=== PATIENT | male | born 1990 | race Caucasian/White ===

== ENCOUNTER 2017-01-11 21:45 | Emergency (ER) | payer MEDICAID, OTHER ==
[2017-01-11] MEDS ORDERED: Albuterol/Ipratropium 3.0-0.5 MG/3 ML Neb Soln NEB ONE (21:52)
[2017-01-11] MEDS ORDERED: methylPREDNISolone Sodium Succinate 125 MG/2 ML SDV IM ONE (21:52)
--- NOTE | 2017-01-11 21:53 | EDM.PDOC ---
ED HPI GENERAL MEDICAL PROBLEM - General Stated Complaint: SHORTNESS OF BREATH Time Seen by Provider: 01/11/17 21:50 Source of Information: Reports: Patient History Limitations: Reports: No Limitations - History of Present Illness INITIAL COMMENTS - FREE TEXT/NARRATIVE: HISTORY AND PHYSICAL: []26-year-old male presenting with shortness of breath History of Present Illness: []Patient has had a cough and cold chest tightness and coughing for 2 weeks. Shortness of breath started worsening today Patient had a history of asthma when he was 5 years old Review of Systems: As per history of present illness and below otherwise all systems reviewed and negative. Past medical history: As per history of present illness and as reviewed below otherwise noncontributory. Surgical history: As per history of present illness and as reviewed below otherwise noncontributory. Social history: No reported history of drug or alcohol abuse. Family history: As per history of present illness and as reviewed below otherwise noncontributory. Physical exam: Alert and oriented gentleman who is nontoxic. Answering questions in full sentences but is breathy. HEENT: Atraumatic, normocehpalic, pupils reactive, negative for conjunctival pallor or scleral icterus, mucous membranes moist, throat clear, neck supple, nontender, trachea midline. Tympanic membranes are blocked bilaterally with cerumen. Lungs: Wheezing on auscultation, breath sounds equal bilaterally, chest non tender. Decreased inspiratory expiratory effort. Diminished. Heart: S1S2, regular, negative for clicks, rubs, or JVD. Abdomen: Soft, nondistended, nontender. Negative for masses or hepatossplenmegaly. Negative for costovertebral tenderness. Pelvis: Stable nontender. Genitourinary: Deferred. Rectal: Deferred Extremities: Atraumatic, negative for cords or calf pain. Neurovascular unremarkable. Neuro: Awake, alert, oriented. Cranial nerves II through XII unremarkable. Cerebellum unremarkable. Motor and sensory unremarkable throughout. Exam nonfocal. Improvement noted with the DuoNeb Diagnostics: [Chest x-ray] Therapeutics: [DuoNeb] Impression: [Asthma exacerbation] Plan: [Discharged to home Prescription given for prednisone ] Prescription for albuterol inhaler Follow-up with your primary care provider next week Definitive disposition and diagnosis as appropriate pending reevaluation and review of above. Onset: Gradual Duration: Week(s): (2), Getting Worse Location: Reports: Chest - Related Data Allergies Allergy/AdvReac Type Severity Reaction Status Date / Time No Known Allergies Allergy Verified 01/11/17 21:55 Home Meds: Home Meds . [No Known Home Meds] 01/11/17 [History] ED ROS GENERAL - Review of Systems Review Of Systems: ROS reveals no pertinent complaints other than HPI. ED EXAM, GENERAL - Physical Exam Exam: See Below Course - Vital Signs Last Recorded V/S: Last Vital Signs Temp 36.6 C 01/11/17 21:56 Pulse 101 H 01/11/17 21:56 Resp 18 01/11/17 21:56 BP 157/74 H 01/11/17 21:56 Pulse Ox 96 01/11/17 21:56 - Orders/Labs/Meds Orders: Active Orders 24 hr Category Date Time Status RT Aerosol Therapy [RC] ASDIRECTED Care 01/11/17 21:52 Active Splinting [RC] ASDIRECTED Care 01/11/17 22:00 Inactive Chest 2V [CR] Stat Exams 01/11/17 21:52 Ordered Meds: Medications Discontinued Medications Generic Name Dose Route Start Last Admin Trade Name Freq PRN Reason Stop Dose Admin Albuterol/Ipratropium 3 ml 01/11/17 21:52 01/11/17 22:05 Duoneb 3.0-0.5 Mg/3 Ml NEB 01/11/17 21:53 3 ml ONETIME ONE Administration Methylprednisolone Sodium Succinate 125 mg 01/11/17 21:52 01/11/17 22:04 Solu-Medrol IM 01/11/17 21:53 125 mg ONETIME ONE Administration Departure - Departure Time of Disposition: 22:08 Disposition: Home, Self-Care 01 Condition: Good Clinical Impression: Exacerbation of asthma - Discharge Information Instructions: Asthma, Adult, Shortness of Breath, [id number] Referrals: PCP,None [Primary Care Provider] - Additional Instructions: The following information is given to patients seen in the emergency department who are being discharged to home. This information is to outline your options for follow-up care. We provide all patients seen in our emergency department with a follow-up referral. The need for follow-up, as well as the timing and circumstances, are variable depending upon the specifics of your emergency department visit. If you don't have a primary care physician on staff, we will provide you with a referral. We always advise you to contact your personal physician following an emergency department visit to inform them of the circumstance of the visit and for follow-up with them and/or the need for any referrals to a consulting specialist. The emergency department will also refer you to a specialist when appropriate. This referral assures that you have the opportunity for followup care with a specialist. All of these measure are taken in an effort to provide you with optimal care, which includes your followup. Under all circumstances we always encourage you to contact your private physician who remains a resource for coordinating your care. When calling for followup care, please make the office aware that this follow-up is from your recent emergency room visit. If for any reason you are refused follow-up, please contact the [facility] emergency department at and asked to speak to the emergency department charge nurse. Your prescriptions have been sent to [facility] Prednisone 20 mg one 3 times a day for 3 days one twice a day for 3 days then one daily for 3 days and stop Albuterol inhaler 2 puffs every 4 hours when necessary shortness of breath Follow-up with your primary care provider next week Return to the emergency room over the weekend if your breathing worsens - My Orders Last 24 Hours: My Active Orders 01/11/17 21:52 RT Aerosol Therapy [RC] ASDIRECTED Chest 2V [CR] Stat 01/11/17 22:00 Splinting [RC] ASDIRECTED - Assessment/Plan Last 24 Hours: My Active Orders 01/11/17 21:52 RT Aerosol Therapy [RC] ASDIRECTED Chest 2V [CR] Stat 01/11/17 22:00 Splinting [RC] ASDIRECTED
[2017-01-11 23:09] VITALS: BP 127/68
--- NOTE | 2017-01-12 09:34 | CR ---
EXAM DATE: 01/11/17 PATIENT'S AGE: 26 Patient: ALFONSO MAURER Facility: [place], [place] Site . Site : 1990 Study: XRay Chest [id number]/31/2017 10:48:48 PM Ordering Physician: Doctor Harkins Final Report: INDICATION: cough TECHNIQUE: Chest 2 views COMPARISON: None FINDINGS: Cardiovascular and mediastinum: Heart size and vasculature are normal in caliber and appearance. Mediastinum is within normal limits. Lungs and pleural spaces: No focal consolidation. Eventration of the right hemidiaphragm. No sign of pleural effusion. No pneumothorax. Bones and soft tissues: No significant findings. IMPRESSION: No acute cardiopulmonary disease. Dictated by Cornelius Orlando MD @ 01/11/2017 11:12:56 PM Dictated by: Cornelius Orlando MD @ 01/11/2017 23:13:35 (Electronic Signature) Report Signed by Proxy. [facility] NETWORKGeorges
== END 2017-01-11 23:09 | disposition home or self-care (01) ==
LOC: MW.ED 21:45
DX: J45.901 Unspecified asthma with (acute) exacerbation (principal)
CPT/HCPCS: 71020; 96372; 99283; J2930; 99282

== ENCOUNTER 2017-05-09 15:10 | Emergency (ER) | payer OTHER ==
[2017-05-09 15:39] VITALS: BP 128/92
--- NOTE | 2017-05-09 15:59 | EDM.PDOC ---
ED HPI GENERAL MEDICAL PROBLEM - General Chief Complaint: Respiratory Problem Stated Complaint: COUGH Time Seen by Provider: 05/09/17 15:54 Source of Information: Reports: Patient History Limitations: Reports: No Limitations - History of Present Illness INITIAL COMMENTS - FREE TEXT/NARRATIVE: History of present illness: [26 year old male comes in complaining of low-grade fever, general body aches and a cough.] Review of systems: As per history of present illness and below otherwise all systems reviewed and negative. Past medical history: As per history of present illness and as reviewed below otherwise noncontributory. Surgical history: As per history of present illness and as reviewed below otherwise noncontributory. Social history: No reported history of drug or alcohol abuse. Family history: As per history of present illness and as reviewed below otherwise noncontributory. Physical exam: HEENT: Atraumatic, normocephalic, pupils reactive, negative for conjunctival pallor or scleral icterus, mucous membranes moist, oral pharyngeal erythema with out white patchy exudate, small amount of cervical lymphadenopathy trachea midline. Lungs: Clear to auscultation, breath sounds equal bilaterally, chest nontender. Heart: S1S2, regular, negative for clicks, rubs, or JVD. Abdomen: Soft, nondistended, nontender. Negative for masses or hepatosplenomegaly. Negative for costovertebral tenderness. Pelvis: Stable nontender. Genitourinary: Deferred. Rectal: Deferred. Extremities: Atraumatic, negative for cords or calf pain. Neurovascular unremarkable. Neuro: Awake, alert, oriented. Cranial nerves II through XII unremarkable. Cerebellum unremarkable. Motor and sensory unremarkable throughout. Exam nonfocal. Diagnostics: [] Therapeutics: [] Impression: [#1 pharyngitis] Plan: [Amoxicillin] Definitive disposition and diagnosis as appropriate pending reevaluation and review of above. generalized Pain Score (Numeric/FACES): 3 - Related Data Allergies Allergy/AdvReac Type Severity Reaction Status Date / Time cefaclor [From [facility]] Allergy Rash Verified 05/09/17 15:39 Home Meds: Home Meds Loratadine [Claritin] 10 mg PO DAILY 05/09/17 [History] Past Medical History - Past Health History Medical/Surgical History: Denies Medical/Surgical History HEENT History: Reports: None Cardiovascular History: Reports: None Respiratory History: Reports: None Gastrointestinal History: Reports: None Genitourinary History: Reports: None Musculoskeletal History: Reports: None Neurological History: Reports: None Psychiatric History: Reports: None Endocrine/Metabolic History: Reports: None Dermatologic History: Reports: None - Infectious Disease History Infectious Disease History: Reports: Chicken Pox - Past Surgical History HEENT Surgical History: Reports: Oral Surgery Male Surgical History: Reports: None Social & Family History - Family History Family Medical History: Noncontributory - Tobacco Use Smoking Status *Q: Former Smoker Years of Tobacco use: 2 Packs/Tins Daily: 1 Used Tobacco, but Quit: Yes Month Tobacco Last Used: February - Caffeine Use Caffeine Use: Reports: Coffee, Energy Drinks, Soda, Tea - Recreational Drug Use Recreational Drug Use: No ED ROS GENERAL - Review of Systems Review Of Systems: See Below (History of present illness) ED EXAM, GENERAL - Physical Exam Exam: See Below (History of present illness) Course - Vital Signs Last Recorded V/S: Last Vital Signs Temp 37.7 C 05/09/17 15:35 Pulse 134 H 05/09/17 15:35 Resp 18 05/09/17 15:35 BP 128/92 H 05/09/17 15:35 Pulse Ox 93 L 05/09/17 15:35 Departure - Departure Time of Disposition: 15:59 Disposition: Home, Self-Care 01 Condition: Good Clinical Impression: Pharyngitis - Discharge Information Additional Instructions: The following information is given to patients seen in the emergency department who are being discharged to home. This information is to outline your options for follow-up care. We provide all patients seen in our emergency department with a follow-up referral. The need for follow-up, as well as the timing and circumstances, are variable depending upon the specifics of your emergency department visit. If you don't have a primary care physician on staff, we will provide you with a referral. We always advise you to contact your personal physician following an emergency department visit to inform them of the circumstance of the visit and for follow-up with them and/or the need for any referrals to a consulting specialist. The emergency department will also refer you to a specialist when appropriate. This referral assures that you have the opportunity for follow-up care with a specialist. All of these measure are taken in an effort to provide you with optimal care, which includes your follow-up. Under all circumstances we always encourage you to contact your private physician who remains a resource for coordinating your care. When calling for follow-up care, please make the office aware that this follow-up is from your recent emergency room visit. If for any reason you are refused follow-up, please contact the [facility] Emergency Department at and asked to speak to the emergency department charge nurse. Take medication as directed Follow-up with primary care provider one to 2 days Return to ED as needed as discussed
== END 2017-05-09 16:12 | disposition home or self-care (01) ==
LOC: MW.ED 15:10
DX: J02.9 Acute pharyngitis, unspecified (principal); Z88.1 Allergy status to other antibiotic agents; Z79.899 Other long term (current) drug therapy; Z87.891 Personal history of nicotine dependence
CPT/HCPCS: 99282

== ENCOUNTER 2018-10-27 20:02 | Emergency (ER) | payer BC, OTHER ==
[2018-10-27] MEDS ORDERED: methylPREDNISolone Sodium Succinate 125 MG/2 ML SDV IM ONE (20:52)
[2018-10-27] MEDS ORDERED: Albuterol/Ipratropium 3.0-0.5 MG/3 ML Neb Soln NEB ONE (20:52)
--- NOTE | 2018-10-27 20:55 | EDM.PDOC ---
ED HPI GENERAL MEDICAL PROBLEM - General Chief Complaint: Respiratory Problem Stated Complaint: FEVER, COUGH Time Seen by Provider: 10/27/18 20:54 Source of Information: Reports: Patient - History of Present Illness INITIAL COMMENTS - FREE TEXT/NARRATIVE: HISTORY AND PHYSICAL: History of present illness: [Patient presents with fever and cough increasing in severity over the last 2-3 days no apparent distress eating drinking voiding and stooling well No nausea vomiting chills sweats no chest pain shortness breath headache dizziness palpitation no bowel or urine symptoms ] Review of systems: As per history of present illness and below otherwise all systems reviewed and negative. Past medical history: As per history of present illness and as reviewed below otherwise noncontributory. Surgical history: As per history of present illness and as reviewed below otherwise noncontributory. Social history: No reported history of drug or alcohol abuse. Family history: As per history of present illness and as reviewed below otherwise noncontributory. Physical exam: HEENT: Atraumatic, normocephalic, pupils reactive, negative for conjunctival pallor or scleral icterus, mucous membranes moist, throat clear, neck supple, nontender, trachea midline. Lungs: Clear to auscultation, breath sounds equal bilaterally, chest nontender. post DuoNeb and Solu-Medrol, prior to medication decreased at the lung bases Heart: S1S2, regular, negative for clicks, rubs, or JVD. Abdomen: Soft, nondistended, nontender. Negative for masses or hepatosplenomegaly. Negative for costovertebral tenderness. Pelvis: Stable nontender. Genitourinary: Deferred. Rectal: Deferred. Extremities: Atraumatic, negative for cords or calf pain. Neurovascular unremarkable. Neuro: Awake, alert, oriented. Cranial nerves II through XII unremarkable. Cerebellum unremarkable. Motor and sensory unremarkable throughout. Exam nonfocal. Diagnostics: [Chest 1 view Strep, influenza TBC CMP UA blood cultures 2 ] Therapeutics: [DuoNeb Solu-Medrol 125 mg IM Prolonged ER observation patient remained stable vitally stable, offered admission desires to return home Levaquin 500 by mouth now Levaquin 750 by mouth daily #7 no refill Prednisone HFA ] Impression: [ fever ]cough Sinus tachycardia history of asthma as a child Definitive disposition and diagnosis as appropriate pending reevaluation and review of above. body Pain Score (Numeric/FACES): 7 - Related Data Allergies Allergy/AdvReac Type Severity Reaction Status Date / Time cefaclor [From [facility]] Allergy Rash Verified 10/27/18 20:26 Home Meds: Home Meds . [No Known Home Meds] 10/27/18 [History] Past Medical History - Past Health History Medical/Surgical History: Denies Medical/Surgical History HEENT History: Reports: None Cardiovascular History: Reports: None Respiratory History: Reports: None Gastrointestinal History: Reports: None Genitourinary History: Reports: None Musculoskeletal History: Reports: None Neurological History: Reports: None Psychiatric History: Reports: None Endocrine/Metabolic History: Reports: None Dermatologic History: Reports: None - Infectious Disease History Infectious Disease History: Reports: Chicken Pox - Past Surgical History HEENT Surgical History: Reports: Oral Surgery Male Surgical History: Reports: None Social & Family History - Family History Family Medical History: Noncontributory - Tobacco Use Smoking Status *Q: Current Every Day Smoker Years of Tobacco use: 5 Packs/Tins Daily: 1 - Caffeine Use Caffeine Use: Reports: Coffee, Energy Drinks, Soda, Tea - Recreational Drug Use Recreational Drug Use: No ED ROS GENERAL - Review of Systems Review Of Systems: See Below ED EXAM, GENERAL - Physical Exam Exam: See Below Course - Vital Signs Last Recorded V/S: Last Vital Signs Temp 97.0 F 10/27/18 23:29 Pulse 128 H 10/27/18 23:29 Resp 20 10/27/18 23:29 BP 128/78 10/27/18 23:29 Pulse Ox 96 10/27/18 23:29 - Orders/Labs/Meds Orders: Active Orders 24 hr Category Date Time Status EKG Documentation Completion [RC] STAT Care 10/27/18 23:53 Active RT Aerosol Therapy [RC] ASDIRECTED Care 10/27/18 20:53 Active CULTURE BLOOD [BC] Stat Lab 10/27/18 21:46 Results CULTURE BLOOD [BC] Stat Lab 10/27/18 22:26 Received CULTURE STREP A CONFIRMATION [RM] Stat Lab 10/27/18 20:40 Results STREP SCRN A RAPID W CULT CONF [RM] Stat Lab 10/27/18 20:40 Results Blood Culture x2 Reflex Set [OM.PC] Stat Oth 10/27/18 21:23 Ordered Labs: Laboratory Tests 0610/27/18 10/27/18 Range/Units 21:46 21:46 21:46 WBC 13.39 H (4.0-11.0) K/uL RBC 4.98 (4.50-5.90) M/uL Hgb 14.5 (13.0-17.0) g/dL Hct 43.6 (38.0-50.0) % MCV 87.6 (80.0-98.0) fL MCH 29.1 (27.0-32.0) pg MCHC 33.3 (31.0-37.0) g/dL RDW Std Deviation 41.4 (28.0-62.0) fl RDW Coeff of Manpreet 13 (11.0-15.0) % Plt Count 264 (150-400) K/uL MPV 10.60 (7.40-12.00) fL Neut % (Auto) 64.3 (48.0-80.0) % Lymph % (Auto) 24.8 (16.0-40.0) % Callaway % (Auto) 9.8 (0.0-15.0) % Eos % (Auto) 0.9 (0.0-7.0) % Baso % (Auto) 0.2 (0.0-1.5) % Neut # (Auto) 8.6 H (1.4-5.7) K/uL Lymph # (Auto) 3.3 H (0.6-2.4) K/uL Callaway # (Auto) 1.3 H (0.0-0.8) K/uL Eos # (Auto) 0.1 (0.0-0.7) K/uL Baso # (Auto) 0.0 (0.0-0.1) K/uL Nucleated RBC % 0.0 /100WBC Nucleated RBCs # 0 K/uL Lactate 1.4 (0.20-2.00) mmol/L Sodium 131 L (136-148) mmol/L Potassium 3.8 (3.5-5.1) mmol/L Chloride 98 (98-107) mmol/L Carbon Dioxide 23.8 (21.0-32.0) mmol/L BUN 14 (7.0-18.0) mg/dL Creatinine 1.2 (0.8-1.3) mg/dL Est Cr Clr Drug Dosing TNP Estimated GFR (MDRD) > 60.0 ml/min Glucose 136 H (74-106) mg/dL Calcium 8.7 (8.5-10.1) mg/dL Total Bilirubin 0.6 (0.2-1.0) mg/dL AST 17 (15-37) IU/L ALT 21 (14-63) IU/L Alkaline Phosphatase 100 (46-116) U/L Total Protein 8.2 (6.4-8.2) g/dL Albumin 3.8 (3.4-5.0) g/dL Globulin 4.4 H (2.6-4.0) g/dL Albumin/Globulin Ratio 0.9 (0.9-1.6) Urine Color Urine Appearance Urine pH (5.0-8.0) Ur Specific Stuart (1.001-1.035) Urine Protein (NEGATIVE) mg/dL Urine Glucose (UA) (NEGATIVE) mg/dL Urine Ketones (NEGATIVE) mg/dL Urine Occult Blood (NEGATIVE) Urine Nitrite (NEGATIVE) Urine Bilirubin (NEGATIVE) Urine Urobilinogen (<2.0) EU/dL Ur Leukocyte Esterase (NEGATIVE) Urine RBC (0-2/HPF) Urine WBC (0-5/HPF) Ur Epithelial Cells (NONE-FEW) Urine Bacteria (NEGATIVE) Urine Mucus (NONE-MOD) 10/27/18 Range/Units 22:27 WBC (4.0-11.0) K/uL RBC (4.50-5.90) M/uL Hgb (13.0-17.0) g/dL Hct (38.0-50.0) % MCV (80.0-98.0) fL MCH (27.0-32.0) pg MCHC (31.0-37.0) g/dL RDW Std Deviation (28.0-62.0) fl RDW Coeff of Manpreet (11.0-15.0) % Plt Count (150-400) K/uL MPV (7.40-12.00) fL Neut % (Auto) (48.0-80.0) % Lymph % (Auto) (16.0-40.0) % Callaway % (Auto) (0.0-15.0) % Eos % (Auto) (0.0-7.0) % Baso % (Auto) (0.0-1.5) % Neut # (Auto) (1.4-5.7) K/uL Lymph # (Auto) (0.6-2.4) K/uL Callaway # (Auto) (0.0-0.8) K/uL Eos # (Auto) (0.0-0.7) K/uL Baso # (Auto) (0.0-0.1) K/uL Nucleated RBC % /100WBC Nucleated RBCs # K/uL Lactate (0.20-2.00) mmol/L Sodium (136-148) mmol/L Potassium (3.5-5.1) mmol/L Chloride (98-107) mmol/L Carbon Dioxide (21.0-32.0) mmol/L BUN (7.0-18.0) mg/dL Creatinine (0.8-1.3) mg/dL Est Cr Clr Drug Dosing Estimated GFR (MDRD) ml/min Glucose (74-106) mg/dL Calcium (8.5-10.1) mg/dL Total Bilirubin (0.2-1.0) mg/dL AST (15-37) IU/L ALT (14-63) IU/L Alkaline Phosphatase (46-116) U/L Total Protein (6.4-8.2) g/dL Albumin (3.4-5.0) g/dL Globulin (2.6-4.0) g/dL Albumin/Globulin Ratio (0.9-1.6) Urine Color DARK YELLOW Urine Appearance SLT CLOUDY Urine pH 6.0 (5.0-8.0) Ur Specific Stuart 1.020 (1.001-1.035) Urine Protein 30 H (NEGATIVE) mg/dL Urine Glucose (UA) NEGATIVE (NEGATIVE) mg/dL Urine Ketones TRACE H (NEGATIVE) mg/dL Urine Occult Blood NEGATIVE (NEGATIVE) Urine Nitrite NEGATIVE (NEGATIVE) Urine Bilirubin NEGATIVE (NEGATIVE) Urine Urobilinogen 0.2 (<2.0) EU/dL Ur Leukocyte Esterase NEGATIVE (NEGATIVE) Urine RBC 0-2 (0-2/HPF) Urine WBC 0-4 (0-5/HPF) Ur Epithelial Cells OCCASIONAL (NONE-FEW) Urine Bacteria FEW (NEGATIVE) Urine Mucus LIGHT (NONE-MOD) Meds: Medications Discontinued Medications Generic Name Dose Route Start Last Admin Trade Name Xu PRN Reason Stop Dose Admin Albuterol/Ipratropium 3 ml 10/27/18 20:52 10/27/18 21:04 Duoneb 3.0-0.5 Mg/3 Ml NEB 10/27/18 20:53 3 ml ONETIME ONE Administration Sodium Chloride 1,000 mls @ 999 mls/hr 10/27/18 21:23 10/27/18 22:21 Normal Saline IV 10/27/18 22:23 999 mls/hr STAT ONE Administration Levofloxacin 500 mg 10/27/18 23:06 10/27/18 23:40 Levaquin PO 10/27/18 23:07 500 mg ONETIME ONE Administration Methylprednisolone Sodium Succinate 125 mg 10/27/18 20:52 10/27/18 21:02 Solu-Medrol IM 10/27/18 20:53 125 mg ONETIME ONE Administration Departure - Departure Time of Disposition: 23:53 Disposition: Home, Self-Care 01 Condition: Good Clinical Impression: Fever, Cough - Discharge Information Referrals: PCP,Unknown [Primary Care Provider] - Forms: ED Department Discharge Additional Instructions: Medication as prescribed Return if symptoms persist or worsen or if new concerning symptoms develop Follow-up with primary care in 2 weeks sooner as needed [facility] [address] [place] [address] The following information is given to patients seen in the emergency department who are being discharged to home. This information is to outline your options for follow-up care. We provide all patients seen in our emergency department with a follow-up referral. The need for follow-up, as well as the timing and circumstances, are variable depending upon the specifics of your emergency department visit. If you don't have a primary care physician on staff, we will provide you with a referral. We always advise you to contact your personal physician following an emergency department visit to inform them of the circumstance of the visit and for follow-up with them and/or the need for any referrals to a consulting specialist. The emergency department will also refer you to a specialist when appropriate. This referral assures that you have the opportunity for follow-up care with a specialist. All of these measure are taken in an effort to provide you with optimal care, which includes your follow-up. Under all circumstances we always encourage you to contact your private physician who remains a resource for coordinating your care. When calling for follow-up care, please make the office aware that this follow-up is from your recent emergency room visit. If for any reason you are refused follow-up, please contact the [facility] emergency department at and asked to speak to the emergency department charge nurse. - My Orders Last 24 Hours: My Active Orders 10/27/18 20:40 CULTURE STREP A CONFIRMATION [RM] Stat STREP SCRN A RAPID W CULT CONF [RM] Stat 10/27/18 20:53 RT Aerosol Therapy [RC] ASDIRECTED 10/27/18 21:23 Blood Culture x2 Reflex Set [OM.PC] Stat 10/27/18 21:46 CULTURE BLOOD [BC] Stat 10/27/18 22:26 CULTURE BLOOD [BC] Stat 10/27/18 23:53 EKG Documentation Completion [RC] STAT - Assessment/Plan Last 24 Hours: My Active Orders 10/27/18 20:40 CULTURE STREP A CONFIRMATION [RM] Stat STREP SCRN A RAPID W CULT CONF [RM] Stat 10/27/18 20:53 RT Aerosol Therapy [RC] ASDIRECTED 10/27/18 21:23 Blood Culture x2 Reflex Set [OM.PC] Stat 10/27/18 21:46 CULTURE BLOOD [BC] Stat 10/27/18 22:26 CULTURE BLOOD [BC] Stat 10/27/18 23:53 EKG Documentation Completion [RC] STAT
--- NOTE | 2018-10-27 21:02 | CR ---
INDICATION: Chest pain and shortness of breath TECHNIQUE: Chest 1 views COMPARISON: 01/11/2017 FINDINGS: Cardiovascular and mediastinum: Heart size and vasculature are normal in caliber and appearance. Lungs and pleural spaces: Lungs are clear. No sign of infiltrate or mass. No sign of pleural effusion. No pneumothorax. Bones and soft tissues: No significant findings. IMPRESSION: No acute findings and no significant changes from the prior exam. Dictated by Jesus Gipson MD @ Oct 27 2018 8:59PM Signed by Dr. Jesus Gipson @ Oct 27 2018 8:59PM
[2018-10-27] MEDS ORDERED: Sodium Chloride 0.9% 1,000 ML IV ONE (21:23)
[2018-10-27 22:33] LABS: CHLORIDE,CL 98 mmol/L (98-107); SODIUM,NA 131 mmol/L (136-148)
[2018-10-27] MEDS ORDERED: Levofloxacin 500 MG Tab PO ONE (23:06)
[2018-10-28 04:25] VITALS: BP 109/81
== END 2018-10-28 00:31 | disposition home or self-care (01) ==
LOC: MW.ED 20:02
DX: R05 Cough (principal); R50.9 Fever, unspecified; R00.0 Tachycardia, unspecified; F17.210 Nicotine dependence, cigarettes, uncomplicated; Z87.09 Personal history of other diseases of the respiratory system; Z98.890 Other specified postprocedural states; Z88.1 Allergy status to other antibiotic agents
CPT/HCPCS: 71045; 80053; 81001; 83605; 85025; 87040; 87081; 87804; 87880; 93005; 94640; 96360; 96372; 99284; A9270; J2930; J7040; J7620-GY

== ENCOUNTER 2022-12-24 11:19 | Observation (INO) | payer OTHER ==
[2022-12-24] MEDS ORDERED: Albuterol/Ipratropium 3.0-0.5 MG/3 ML Neb Soln NEB STA (11:43)
[2022-12-24] MEDS: Magnesium Sulfate/Water 2 GM in Premix Bag 1 BAG IV STA ×2 (11:50→12:07)
[2022-12-24] MEDS: methylPREDNISolone Sodium Succinate 125 MG/2 ML SDV IVPUSH STA ×2 (11:52→12:07)
[2022-12-24] MEDS ORDERED: predniSONE 20 MG Tab PO ONE (11:55)
[2022-12-24] MEDS ORDERED: Albuterol 0.083% 2.5 MG/3 ML Neb Soln NEB ONE ×2 (13:00→14:55)
[2022-12-24] MEDS ORDERED: Magnesium Sulfate/Water 2 GM in Premix Bag 1 BAG IV ONE (14:55)
[2022-12-24] MEDS ORDERED: Lactated Ringers 1,000 ML IV ONE (15:15)
[2022-12-24] MEDS ORDERED: Lactated Ringers 1,000 ML IV SCH (15:15)
[2022-12-24 16:02] LABS: BASOPHILS PERCENT AUTO 0.2 % (0.0-1.5); EOSINOPHILS ABSOLUTE AUTO 0.1 K/uL (0.0-0.7); HEMATOCRIT 41.5 % (38.0-50.0); HEMOGLOBIN 13.7 g/dL (13.0-17.0); LYMPHOCYTES ABSOLUTE AUTO 0.9 K/uL (0.6-2.4); LYMPHOCYTES PERCENT AUTO 6.3 % (16.0-40.0); MEAN CORPUSCULAR HEMOGLOBIN 28.8 pg (27.0-32.0); MEAN CORPUSCULAR VOLUME 87.2 fL (80.0-98.0); MONOCYTES ABSOLUTE AUTO 0.4 K/uL (0.0-0.8); MONOCYTES PERCENT AUTO 3.2 % (0.0-15.0); NEUTROPHILS ABSOLUTE AUTO 12.2 K/uL (1.4-5.7); NEUTROPHILS PERCENT AUTO 89.3 % (48.0-80.0); NRBC ABSOLUTE 0 K/uL; PLATELET COUNT,PLT 315 K/uL (150-400); RED BLOOD CELL COUNT 4.76 M/uL (4.50-5.90); WHITE BLOOD CELL COUNT,WBC 13.62 K/uL (4.0-11.0)
[2022-12-24 16:15] LABS: A/G RATIO 0.9 (0.9-1.6); ALBUMIN 3.7 g/dL (3.4-5.0); BILIRUBIN TOTAL 0.4 mg/dL (0.2-1.0); CALCIUM 8.9 mg/dL (8.5-10.1); CARBON DIOXIDE,CO2 26.9 mmol/L (21.0-32.0); CREATININE 0.8 mg/dL (0.8-1.3); EST CRCL DRUG DOSING (CG) 141.19 mL/min; POTASSIUM,K 4.2 mmol/L (3.5-5.1)
[2022-12-24] MEDS ORDERED: Cetirizine 10 MG Tab PO PRN (17:33)
[2022-12-24] MEDS ORDERED: Albuterol/Ipratropium 3.0-0.5 MG/3 ML Neb Soln ONE (20:01)
[2022-12-24] MEDS: Albuterol/Ipratropium 3.0-0.5 MG/3 ML Neb Soln NEB SCH (20:04)
[2022-12-24] MEDS ORDERED: Levofloxacin/Dextrose 5%-Water 750 MG in Premix Bag 1 BAG IV SCH (23:00)
[2022-12-25] MEDS ORDERED: methylPREDNISolone Sodium Succinate 40 MG/1 ML SDV IVPUSH SCH (00:01)
[2022-12-25] MEDS: Albuterol/Ipratropium 3.0-0.5 MG/3 ML Neb Soln NEB SCH ×2 (00:16→05:57)
[2022-12-25 05:35] LABS: HEMATOCRIT 41.3 % (38.0-50.0); HEMOGLOBIN 13.5 g/dL (13.0-17.0); MEAN CORPUSCULAR HEMOGLOBIN 28.8 pg (27.0-32.0); MEAN CORPUSCULAR HGB CONC 32.7 g/dL (31.0-37.0); MEAN CORPUSCULAR VOLUME 88.1 fL (80.0-98.0); MEAN PLATELET VOLUME 10.3 fL (7.40-12.00); RED BLOOD CELL COUNT 4.69 M/uL (4.50-5.90); WHITE BLOOD CELL COUNT,WBC 13.85 K/uL (4.0-11.0)
[2022-12-25 05:52] LABS: CALCIUM 9.2 mg/dL (8.5-10.1); CARBON DIOXIDE,CO2 27.4 mmol/L (21.0-32.0); CREATININE 0.9 mg/dL (0.8-1.3); EST CRCL DRUG DOSING (CG) 129.33 mL/min; MAGNESIUM 2.5 mg/dL (1.8-2.4); POTASSIUM,K 4.7 mmol/L (3.5-5.1)
[2022-12-25 07:09] VITALS: BP 139/71; PULSE 88
[2022-12-25] MEDS ORDERED: Montelukast 10 MG Tab PO SCH (21:00)
== END 2022-12-25 11:10 | disposition home or self-care (01) ==
LOC: MW.ED 11:19 → MW.MS 16:24
PROVIDERS: ADMIT Internal Medicine; ATTEND Internal Medicine
DX: J45.51 Severe persistent asthma with (acute) exacerbation (principal); F17.210 Nicotine dependence, cigarettes, uncomplicated; Z79.52 Long term (current) use of systemic steroids; Z79.899 Other long term (current) drug therapy; Z88.1 Allergy status to other antibiotic agents; Z20.822 Contact with and (suspected) exposure to COVID-19
CPT/HCPCS: 36415; 71045; 80048; 80053; 83735; 85025; 85027; 87635; 93005; 96365; 96366; 96367; 96375; 99285; A9270; G0378; J1956; J2920; J3475; J7120; 93010; 99222; 99238; 99284; J2930; J7620-GY; U0002